=== PATIENT | male | born 1970 | race African-American/Black ===

== ENCOUNTER → 2021-12-03 | Outpatient (CLI) | payer OTHER ==
[~2021-12-03] MED LIST: LISI-374 PO; OMEP20TA63 PO; TADA5TAB PO
[2021-12-03 10:51] LABS: PROTHROMBIN TIME PATIENT 13.3 SEC (11.7-14.0)
--- NOTE | 2021-12-03 13:19 | RAD ---
XR CHEST 2V INDICATION: PRE-OP EVAL FOR RIGHT SHOULDER SX COMPARISON STUDY: None. FINDINGS: Lungs: Normal lung volume. No pulmonary mass or consolidation. The tracheobronchial tree and hilar st ructures are normal. Pleura: No pleural effusion or pneumothorax. Heart and Mediastinum: The cardiomediastinal silhouette is normal. The great vessels of the thorax ar e normal. Bones and Soft Tissues: The bones and soft tissues are within normal limits. IMPRESSION: No acute cardiopulmonary process. Electronically signed by: Wil Royal MD (12/03/2021 1:17 PM) [id number]
[2021-12-04 01:09] LABS: HEMOGLOBIN A1C 5.4 % (4.8-5.6)
== END ==
LOC: SURGPAT 09:39
PROVIDERS: ATTEND Orthopaedic Surgery Sports Medicine
DX: Z01.818 Encounter for other preprocedural examination (principal); M19.011 Primary osteoarthritis, right shoulder
CPT/HCPCS: 36415; 71046; 82306; 83036; 85610; 85651; 85730; 87641

== ENCOUNTER 2021-12-10 06:18 | Observation (INO) | payer OTHER ==
[2021-12-03 10:14] VITALS: BP 151/91
[~2021-12-10] VITALS: Ht 185.4 cm; Wt 116.0 kg
[2021-12-10] VITALS (11 sets, daily range): BP systolic 122–152; BP diastolic 71–100
[~2021-12-10 06:18] MED LIST changes: +ACETAMINOPHEN 500 MG TABLET PO ONE; +HYDROmorphone 2 MG/ML INJ. IVP PRN; +IV RINGERS,LACTATED 1000ML 1,000 ML IV SCH; +MORPHINE SULFATE 2 MG/ML INJ. IVP PRN; +PROCHLORPERAZINE 10 MG/2 ML VIAL. IVP PRN; +TRANEXAMIC ACID in NS IVPB 50 ML INJ ONE; +TV=62ml MORPHINE 5 MG, KETOROLAC 30 MG, ROPIV, EPI INT ART ONE; +ceFAZolin 2GM PREMIX 2 GM/50 ML BAG IV ONE; +fentaNYL PF VIAL 100 MCG/2 ML VIAL IVP PRN
[2021-12-10] MEDS ORDERED: TRANEXAMIC ACID in NS IVPB 50 ML ONE (07:00)
[2021-12-10] MEDS ORDERED: fentaNYL PF VIAL 100 MCG/2 ML VIAL ONE ×2 (07:03→07:31)
[2021-12-10] MEDS ORDERED: MIDAZOLAM HCL/PF 2 MG/2 ML VIAL. ONE ×2 (07:03→07:31)
[2021-12-10] MEDS ORDERED: FAMOTIDINE 20 MG/2 ML VIAL ONE (07:03)
[2021-12-10] MEDS ORDERED: ROPIVacaine 0.5% PF 20 ML VIAL. ONE (07:03)
[2021-12-10] MEDS ORDERED: LIDOCAINE 2% PF 5 ML VIAL. ONE (07:30)
[2021-12-10] MEDS ORDERED: PROPOFOL 10 MG/ML (20ML) VIAL. IV ONE (07:30)
[2021-12-10] MEDS ORDERED: DEXAMETHASONE SOD PHOS 4 MG/ML VIAL ONE ×2 (07:30→09:12)
[2021-12-10] MEDS ORDERED: ONDANSETRON PF 4 MG/2 ML VIAL. ONE (07:31)
[2021-12-10] MEDS ORDERED: ROCURONIUM 50 MG/5 ML VIAL. ONE ×2 (07:31→09:23)
[2021-12-10] MEDS ORDERED: GLYCOPYRROLATE 1 MG/5 ML VIAL. ONE (07:31)
[2021-12-10] MEDS ORDERED: NEOSTIGMINE METHYLSULFATE 5 MG/5 ML SYRINGE. ONE (07:31)
[2021-12-10] MEDS ORDERED: TRANEXAMIC ACID in NS IVPB 50 ML INJ ONE (08:00)
[2021-12-10] MEDS ORDERED: ePHEDrine PF IN SALINE 50 MG/10 ML SYRINGE. IV ONE (09:12)
[2021-12-10] MEDS ORDERED: SEVOFLURANE 31 TO 60 MINUTES. IH ONE (09:12)
[2021-12-10] MEDS ORDERED: DEXMEDETOMIDINE 200 MCG/2 ML VIAL. ONE (10:45)
--- NOTE | 2021-12-10 11:01 | PDOC4 ---
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 Postoperative gnosis: Same Procedure performed: Right shoulder hemiarthroplasty Open biceps tenodesis Anesthesia: General plus regional nerve block Complications: None Findings: Advanced primary degenerative joint disease primarily affecting humeral head, glenoid had intact articular cartilage grossly, no asymmetry present. Components inserted Tornier ascend flex standard stem size 3B with a low eccentric cobalt chrome humeral head 50 mm x 19 mm Reason for procedure: Patient is a very pleasant and active 51-year-old gentleman who was referred to see myself in my outpatient clinic for complaints of severe and progressive shoulder pain limiting his activities. He had tried and failed a rehab program, anti-inflammatories and injections. Please see my consult note for further details. We had a discussion of the risk benefits alternatives and rationale for hemiarthroplasty as opposed to total shoulder arthroplasty and he wished to proceed. Description of procedure: Patient was greeted in the preoperative area by myself or the correct extremity was verified and marked. He was taken back to the operative suite after placement of a regional nerve block by the anesthesiology team. His antibiotics were started as he was brought back. Once in the operating room, he was transferred on spine to the operating table and secured to the bed with all pressure points padded and had successful induction of a general anesthetic. He was then sat up in a modified beachchair position maintaining C-spine in neutral position with a large pillow under his legs as well and he was secured to the bed. Left upper extremity was then prepped and draped in the usual sterile fashion after I conducted my examination under anesthesia which demonstrated forward elevation to 180, external rotation to about 40 degrees and internal rotation of about 20 degrees. Ioban was used at the periphery of the draping. I palpated marked surface anatomy and delisa a line for my planned deltopectoral incision. Timeout was conducted. I then incised skin with a scalpel and dissected subcutaneous tissue with Metzenbaums, cauterizing bleeders with electrocautery as I encountered them. Identified the cephalic vein and bluntly developed the deltopectoral interval mobilizing the vein laterally. I placed my self-retaining retractor and I incised the clavipectoral fascia in line with the biceps tendon. I then identified the biceps tendon open bicipital groove and sheath and then tenodesed the biceps in situ with #2 Ethibond to the upper border of the pectoralis major tendon. I then opened the remainder of the bicipital groove into the rotator interval. I then remove the biceps tendon from the labrum with a curved Martinez scissors. After this, I proceeded to sequentially tag and take down the subscapularis with electrocautery and progressive external rotation. I then spent a fair amount of time removing inferior and anterior osteophytes and releasing the capsule from the humeral side. After this I made sure to appreciate the patient's anatomy including retroversion and orientation of his humeral head. I then used my cutting guide to start making my cut and then continued my cut after protecting the rotator cuff with a retractor. I then delivered the humeral head from the operative field and inspected and compared it to my implant options on the back table. After this I inspected the glenoid and noted no gross wear or asymmetry. I then reposition the arm and added in Derra retractors I inspected the posterior aspect and took down more osteophytes there as well. After this I began reaming and broaching to the above size which gave a good fit. I then trialed my humeral head size, I initially trialed a 52, but felt the 50 was a better fit. I adjusted the centricity for more appropriate coverage and reduced the shoulder, I think he had appropriate tension at his subscap and 50% spring back. After this I removed the trial components and thoroughly irrigated the operative field and canal. I then placed drill holes and shuttled #2 Ethibond through the drill holes for my subscap repair. After this I assembled the implant on the back table after changing gloves. I then impacted this into position with my Ethibond sutures around the stem. After impacting position I was happy with the orientation and then proceeded to shuttle my tag sutures of my subscapularis through my repair sutures and tied down the subscapularis after reducing the glenohumeral joint. I then supplemented this and repaired the rotator interval with #2 Ethibond in a simple fashion as well. After this, I irrigated the operative field out again and closed the deltopectoral interval with running 0 Vicryl followed by inverted interrupted 2-0 Vicryl for subcutaneous tissue and running 4-0 Monocryl in a buried subcuticular fashion fo r skin. Prior to wound closure all counts correct x2. No complications. At the conclusion, the shoulder and arm were cleansed and dried and our incisional wound VAC was applied. Patient tolerated surgery well. A large bulky dressing was then applied over top of the wound VAC and the patient was then placed into a regular sling. He is awake from anesthesia laid supine and transferred gently supine to the recovery room cart and taken to PACU in stable and extubated condition. Postoperative plan is to admit him for observation for pain control. He will receive antibiotic prophylaxis as well as PT and OT. RAMON RODRIGUEZ II, MD December 10, 2021 11:00
[2021-12-10] MEDS ORDERED: METOCLOPRAMIDE HCL 10 MG/2 ML VIAL. IV PRN (11:15)
[2021-12-10] MEDS ORDERED: ZOLPIDEM 5 MG TABLET. PO PRN (11:15)
[2021-12-10] MEDS ORDERED: 0.9 % SODIUM CHLORIDE 10 ML DISP.SYRIN. IV PRN (11:15)
[2021-12-10] MEDS ORDERED: CALCIUM CARBONATE 500 MG TAB.CHEW PO PRN (11:15)
[2021-12-10] MEDS ORDERED: NALOXONE 0.4 MG/ML VIAL. IV PRN (11:15)
[2021-12-10] MEDS ORDERED: PROCHLORPERAZINE 5 MG TABLET. PO PRN (11:15)
[2021-12-10] MEDS ORDERED: DEXTROSE 50% 25 GM / 50ML DISP.SYRIN. IV PRN (11:15)
[2021-12-10] MEDS ORDERED: IV DEXTROSE 5% 250 ML BAG. IV PRN (11:15)
[2021-12-10] MEDS: IV NORMAL SALINE 1000ML BAG 1,000 ML IV SCH (11:15)
[2021-12-10] MEDS ORDERED: PANTOPRAZOLE 40 MG TABLET.DR. PO PRN (11:15)
[2021-12-10] MEDS ORDERED: IV DEXTROSE 5 %-0.45 % NACL 1,000 ML IV SCH (11:15)
--- NOTE | 2021-12-10 12:18 | RAD ---
Exam: XR SHOULDER_RIGHT 2+ VIEWS History: Postop right shoulder Comparison: None. Findings: There are postsurgical features from right shoulder arthroplasty with the humeral head resurfacing. T he humeral stem appears well seated. Alignment is anatomic. No fracture or dislocation. Expected subc utaneous emphysema and edema consistent with recent instrumentation. Low lung volumes. Impression: 1. Expected postsurgical changes from right shoulder arthroplasty. Electronically signed by: Benjamin Lua MD (12/10/2021 12:16 PM) [id number]
[2021-12-10] MEDS: MORPHINE SULFATE 2 MG/ML INJ. IV PRN (15:16)
[2021-12-10] MEDS: oxyCODONE/APAP 5/325 1 TAB TABLET PO PRN ×3 (17:32→22:53)
[2021-12-11] MEDS: MORPHINE SULFATE 2 MG/ML INJ. IV PRN (02:50)
[2021-12-11 03:00] VITALS: BP 135/90
[2021-12-11 05:14] LABS: HEMOGLOBIN 12.3 g/dL (13.0-17.5)
[2021-12-11] MEDS ORDERED: MAGNESIUM HYDROXIDE 2,400 MG/30 ML ORAL.SUSP. PO PRN (06:00)
[2021-12-11 07:36] VITALS: BP 137/80
--- NOTE | 2021-12-11 07:51 | DISCH ---
DISCHARGE INSTRUCTIONS Condition on Discharge Condition on Discharge: Stable Activity After Discharge Activity Instructions for Disc: Other, see below Other activity instructions: arm to remain in sling Bathing Instructions: Shower-keep dressing dry Weight Bearing Status after Di: Non weight bearing Diet after Discharge Diet after Discharge: Regular Wound Incision Care Wound/Incision Care: Ice to area for comfort, Keep wound/cast CDI, Do not change dressing Contacting the DR. after DC Call your doctor for: Concerns you may have Follow-Up Follow up with: Elly in 2 wks FAITH RODRIGUEZ II, MD December 11, 2021 07:51
--- NOTE | 2021-12-11 07:53 | PDOC ---
ORTHO PROGRESS NOTES DATE: 12/11/21 TIME: 07:52 Subjective Some pain, tolerable. No pain at rest. No abd complaints, tolerating diet Vitals Vital Signs Date Time Temp Pulse Resp B/P (MAP) Pulse Ox O2 Delivery O2 Flow Rate FiO2 12/11/21 07:36 98.0 72 16 137/80 (99) 96 Room Air 98.0 12/10/21 20:00 2.0 Labs Laboratory Tests Test 12/10/21 06:27 12/11/21 04:35 POC SARS CoV-2 Antigen Negative (NEGATIVE) Hemoglobin 12.3 g/dL (13.0-17.5) Hematocrit 37.0 % (39.0-53.0) Mean Corpuscular Hemoglobin Concent 33 g/dL (31-37) Laboratory Tests Test 12/11/21 04:35 Hemoglobin 12.3 g/dL (13.0-17.5) Hematocrit 37.0 % (39.0-53.0) Mean Corpuscular Hemoglobin Concent 33 g/dL (31-37) X-Rays reviewed Notes A and A in bed dressing with some bloody drainage normal m/s in R hand Assessment and Plan D/C home outpatient PT, referral will be sent RIO change prior to D/C FAITH RODRIGUEZ II, MD December 11, 2021 07:53
[2021-12-11] MEDS: oxyCODONE/APAP 5/325 1 TAB TABLET PO PRN ×3 (08:10→14:07)
--- NOTE | 2021-12-11 08:28 | PDOC3 ---
Discharge Summary Visit Information Date of Admission: December 10, 2021 Date of Discharge: December 11, 2021 Admitting Diagnosis: Advanced primary right shoulder degenerative joint disea Brief Hospital Course Allergies Allergies Coded Allergies Type Severity Reaction Last Updated Verified No Known Drug Allergies 12/10/21 No Vital Signs Vital Signs Date Time Temp Pulse Resp B/P (MAP) Pulse Ox O2 Delivery O2 Flow Rate FiO2 12/11/21 08:11 72 137/80 12/11/21 07:36 98.0 16 96 Room Air 98.0 12/10/21 20:00 2.0 Lab Results Laboratory Tests Test 12/10/21 06:27 12/11/21 04:35 POC SARS CoV-2 Antigen Negative (NEGATIVE) Hemoglobin 12.3 g/dL (13.0-17.5) Hematocrit 37.0 % (39.0-53.0) Mean Corpuscular Hemoglobin Concent 33 g/dL (31-37) Laboratory Tests Test 12/11/21 04:35 Hemoglobin 12.3 g/dL (13.0-17.5) Hematocrit 37.0 % (39.0-53.0) Mean Corpuscular Hemoglobin Concent 33 g/dL (31-37) Brief Hospital Course Mr. Gifford is a 51 old male who presented to my outpatient orthopedic surgery clinic with complaints of progressive right shoulder pain limiting his activities. Please see my consult note for further details. He underwent a right shoulder hemiarthroplasty and tolerated this well, recovering well from anesthesia in the PACU and was then taken to the [facility] floor for observation. He received IV pain medicine, prior to discharge his pain was controlled on oral pain medicine. He was hemodynamically stable and afebrile throughout his hospital course. He received instruction in early rehab from physical therapy. He was tolerating regular diet and having normal bowel and bladder function. He was neurovascularly intact. His hospital stay was uneventful. Discharge Information Condition at Discharge: Stable Follow Up: Weeks Disposition/Orders: D/C to Home Scheduled Lisinopril/Hydrochlorothiazide (Zestoretic 20-12.5 Mg Tablet) 1 Each Tablet, 1 TAB PO DAILY for htn for 30 Days, #30 Ref 0 (Reported) Entered as Reported by: Yamile Wallace on 12/03/21 1004 Last Taken: Unknown Dose on 12/09/21 Last Action: Converted on 12/10/21 1104 by NILO RODRIGUEZ MD Tadalafil (Cialis) 5 Mg Tablet, 1 TAB PO DAILY for , #30 Ref 5 (Reported) Entered as Reported by: Yamile Wallace on 12/03/21 1005 Scheduled PRN Omeprazole Magnesium (Prilosec Otc) 20 Mg Tablet.dr, 1 TAB PO DAILY PRN for DYSPEPSIA for 30 Days, #30 Ref 0 (Reported) Entered as Reported by: Yamile Wallace on 12/03/21 1039 Last Taken: Unknown Dose on 12/10/21 0515 Last Action: Converted on 12/10/211103 by NILO RODRIGUEZ MD Patient Instructions Patient Instructions He will be discharged home. We will get outpatient PT set up. He will be nonweightbearing, sling for 6 weeks. Worrisome signs and symptoms that should prompt a phone call to my office were discussed with him and his questions were answered. This dressing will remain in place. Wound care was discussed as well. I will see him back in 2 weeks, sooner should a problem arise Justicifation of Admission Dx: Justifications for Admission: Justification of Admission Dx: FAITH Leija II, MD December 11, 2021 08:28
[2021-12-11] MEDS ORDERED: SENNOSIDES/DOCUSATE 8.6/50MG TABLET. PO SCH (09:00)
[2021-12-11] MEDS ORDERED: LISINOPRIL 20 MG TABLET PO SCH (09:00)
[2021-12-11] MEDS ORDERED: hydroCHLOROthiazide 12.5 MG TABLET PO SCH (09:00)
[2021-12-11] MEDS ORDERED: MULTIVITAMIN with MINERAL TABLET. PO SCH (09:00)
[2021-12-11 10:48] VITALS: BP 126/85
[2021-12-11] MEDS: IV NORMAL SALINE 1000ML BAG 1,000 ML IV SCH (11:15)
--- NOTE | 2021-12-11 14:50 | NUR ---
Pt DC home in stable condition with belongings per wheelchair, accompanied by family. DC instructions and medications reviewed. Patient and family deny having questions at this time. Spoke with Dr. Sanabria prior to DC regarding patient dressing continuing to slowly saturate with RIO. Orders given to leave RIO in place and disconnect box. Patient was told to follow up with Dr. Sanabria in 1 week for dressing check . SL removed, cath intact.
[2021-12-11] MEDS ORDERED: BISACODYL 10 MG SUPP.RECT. PR PRN (16:00)
--- NOTE | 2021-12-11 18:21 | PATHOLOGY ---
[facility] Accession Number: [id number] . 01 Material submitted: . shoulder - RIGHT SHOULDER BONE . 01 Clinical history: . PRIMARY OSTEOARTHRITIS OF RIGHT SHOULDER . 02 Diagnosis: Segments of bone and articular cartilage, right shoulder hemiarthroplasty: - Focally advanced degenerative arthritis with subarticular fibrosis and cystic degeneration. (JPM:sanaz; 12/11/2021) [facility] 12/11/2021 1757 Local . 02 Electronically signed: . Kai Villegas MD, Pathologist NPI- [id number] . 01 Gross description: . The specimen is received in formalin, labeled "Fernandez Gifford, right shoulder bone". Received is a dome-shaped segment of bone measuring 5.5 x 5.1 x 2.0 cm in greatest dimensions as well as multiple irregularly shaped bone fragments measuring 3.0 x 2.3 x 0.8 cm. The articular surface is pale poe-pink to dark poe-red, smooth to roughened, and with signs of eburnation. Sectioning reveals light poe-yellow to dark red and hemorrhagic cut surfaces with no grossly distinct nodules or lesions. The specimen is submitted representatively in cassette A1, following decalcification.([facility]; 12/10/2021) [facility] 12/11/2021 1544 Local . 02 Pathologist provided ICD-10: M19.011 . 02 CPT . 715631, [id number] Specimen Comment: A courtesy copy of this report has been sent to [phone], [phone] Specimen Comment: [id number] Specimen Comment: Report sent to / DR BERNAL Specimen Comment: A duplicate report has been generated due to demographic updates. Performed at: [address] [facility] [id number] [facility] [address], [place], [place] [id number] MD Corey Dunham MD Phone: [phone] Performed at: [facility] [address] [place], [place] [id number] MD Kai Villegas MD Phone: [phone]
== END 2021-12-11 14:50 | disposition home or self-care (01) ==
LOC: SURG 06:18 → 4 NORTH 11:01
PROVIDERS: ADMIT Orthopaedic Surgery Sports Medicine; ATTEND Orthopaedic Surgery Sports Medicine
DX: M19.011 Primary osteoarthritis, right shoulder (principal); Z20.822 Contact with and (suspected) exposure to COVID-19; Z79.899 Other long term (current) drug therapy; Z98.890 Other specified postprocedural states
CPT/HCPCS: 23430; 23470; 36415; 73030; 85014; 85018; 86850; 86900; 86901; 88304; 88311; 96365; 96366; 96375; 96376; 97165; 97530; 97535; A4213; A4565; A4930; A6223; A6253; A6402; A6550; C1776; G0378; G0379; J0171; J0690; J1100; J1885; J2250; J2270; J2405; J2704; J2710; J2795; J3010; J3490; A4223; A4452